=== PATIENT | female | born 1980 | race Caucasian/White ===

== ENCOUNTER 2018-11-07 01:17 | Emergency (ER) | payer BC ==
[~2018-11-07] VITALS: Ht 167.6 cm; Wt 90.7 kg
--- NOTE | 2018-11-07 01:20 | NUR ---
PT [id number] FOR WITNESSED SEIZURE, PER EMS PT MASHA CALLED 911 AFTER WITNESSING SEIZURE, PT POSTICTAL ON SCENE, HAS HX OF SEIZURE 10 YEARS AGO, TAKES PROPANOLOL FOR HTN. PT AXO4 AT THIS MOMENT. PT RESPIRATIONS EVEN AND UNLABORED. PT PUT ON THE SPLITTER TENDER AND PULSE OX.
--- NOTE | 2018-11-07 02:00 | NUR ---
PT RESTING IN BED, NAD NOTED. WILL CONTINUE TO MONITOR.
--- NOTE | 2018-11-07 03:06 | NUR ---
Patient discharged to home in stable condition. Written and verbal after care instructions given. Patient verbalizes understanding of instruction. IV removed. Catheter intact and site benign. Pressure and 4x4 applied to site. No bleeding noted.
[2018-11-07 03:07] VITALS: BP 133/84
== END 2018-11-07 03:08 | disposition home or self-care (01) ==
LOC: ER 01:20
DX: R56.9 Unspecified convulsions (principal); I10 Essential (primary) hypertension; F17.200 Nicotine dependence, unspecified, uncomplicated
CPT/HCPCS: 82962-TC